=== PATIENT | female | born 1950 | race Caucasian/White ===

== ENCOUNTER 2017-06-15 09:16 | Observation (INO) | payer MEDICARE ==
[~2017-06-15] VITALS: Ht 160 cm; Wt 92.3 kg
[2017-06-15] MEDS ORDERED: AMLO10 PO (09:49)
[2017-06-15] MEDS ORDERED: LEVSOD137 PO (09:50)
[2017-06-15] MEDS ORDERED: NAPR220 PO (09:50)
[2017-06-15] MEDS ORDERED: Solaraze100 GM TOP (09:50)
[2017-06-15 10:08] LABS: BASOPHILS ABSOLUTE AUTO 0.03 K/mm3 (0.00-0.23); BASOPHILS PERCENT AUTO 0 % (0-2); EOSINOPHILS ABSOLUTE AUTO 0.18 K/mm3 (0.00-0.68); EOSINOPHILS PERCENT AUTO 2 % (0-6); Hematocrit 48.4 % (33.0-51.0); Hemoglobin 17.3 g/dL (11.5-16.0); IMMATURE GRAN ABSOLUTE AUTO 0.08 K/mm3 (0.00-0.10); IMMATURE GRAN PERCENT AUTO 1 % (0-1); LYMPHOCYTES ABSOLUTE AUTO 3.46 K/mm3 (0.84-5.20); LYMPHOCYTES PERCENT AUTO 38 % (21-46); MONOCYTES ABSOLUTE AUTO 0.84 K/mm3 (0.16-1.47); MONOCYTES PERCENT AUTO 9 % (4-13); Mean Corpuscular HGB 33.6 pg (26.0-34.0); Mean Corpuscular HGB Conc 35.7 g/dL (31.5-36.5); Mean Corpuscular Volume 94 fL (80-100); Mean Platelet Volume 9.5 fL (9.1-12.4); NEUTROPHILS ABSOLUTE AUTO 4.59 K/mm3 (1.96-9.15); NEUTROPHILS PERCENT AUTO 50 % (41-73); Platelet Count 173 K/mm3 (150-400); RDW Coefficient Variation 12.3 % (11.7-14.2); RDW Standard Deviation 41.9 fL (35.1-46.3); Red Blood Cell Count 5.15 M/mm3 (3.80-5.20); White Blood Cell Count 9.18 K/mm3 (4.00-11.30)
[2017-06-15 10:13] LABS: Albumin, Blood 4.5 g/dL (3.4-5.0); Albumin/Globulin Ratio 1.1 (0.8-1.8); Bilirubin, Total 0.6 mg/dL (0.1-1.0); Bun/Creatinine Ratio 20.9 (12.0-20.0); Calcium, Blood 9.4 mg/dL (8.5-10.1); Creatinine, Blood 1.1 mg/dL (0.40-1.00); Potassium, Blood 3.8 mmol/L (3.5-5.5); Total Protein, Blood 8.5 g/dL (6.4-8.2)
[2017-06-16] MEDS ORDERED: ASPI81CH PO (11:16)
[2017-06-16] MEDS ORDERED: CHLO25B PO (11:16)
[2017-06-16] MEDS ORDERED: ATOR40TA PO (11:16)
== END 2017-06-16 14:53 | disposition home or self-care (01) ==
LOC: ER 09:16 → MEDS 09:17 → ENPENDDIS 06-16 11:00 → MEDS 06-16 14:53
PROVIDERS: Physician Assistant
DX: G45.9 Transient cerebral ischemic attack, unspecified (principal); E03.9 Hypothyroidism, unspecified; I10 Essential (primary) hypertension; Z88.0 Allergy status to penicillin; Z88.2 Allergy status to sulfonamides; Z88.8 Allergy status to other drugs, medicaments and biological substances; Z79.899 Other long term (current) drug therapy
CPT/HCPCS: 70450; 70551; 71046; 80053; 85025; 93005; 93010; 93306; 93880; 99285; G0378